=== PATIENT | female | born 1990 | race African-American/Black ===

== ENCOUNTER 2019-02-20 04:34 | Emergency (ER) | payer SELFPAY ==
--- NOTE | 2019-02-20 05:02 | PDOC ---
History of Present Illness - General Stated Complaint: STREP THROAT Time Seen by Provider: 02/20/19 05:02 - History of Present Illness Initial Comments: HPI: 28yo F reporting sore throat x 3 days. Patients states she has been exposed to someone with confirmed strep throat and being treated. When asked why she was present in the ED, she stated she was accompanying the other patient (the one with strep throat). Patient tolerating po intake and secretions. No muffled voice or trismus. Patient additionally endorses congestion and cough. Denies recent travel. No fever, but endorses chills. ROS: Constitutional: no fever, +chills HEENT: +throat pain, no dysphagia Cardiovascular: no chest pain, no palpitations Respiratory: no cough, no shortness of breath Gastrointestinal: no abdominal pain, no nausea Genitourinary: no dysuria, no hematuria Musculoskeletal: no myalgia, no arthralgia Skin: no rash, no itching Neurologic: no headache, no weakness PE: General: Awake, alert, and fully oriented, in no acute distress Head: No signs of trauma Eyes: EOMI, sclera anicteric ENT: Moist mucus membranes, uvula midline, no exudates, no oral masses/lesions Neck: Normal ROM, supple Lungs: Lungs clear, Normal breath sounds Cardio: Regular rhythm, S1 and S2 present Abdomen: Soft, nontender Extremities: Normal range of motion, Distal pulses present SKIN: Warm, Dry, normal turgor Neurologic: Cranial nerves II through XII grossly intact. Normal speech ED Course/MDM: DDX including but not limited to viral syndrome, strep throat, retropharyngeal abscess, peritonsillar abscess As she is outside the window for treatment, will not test for influenza Of note, per chart review, that patient was negative for strep throat. CENTOR criteria 0, no further testing nor antibiotics indicated Tylenol 02/20/19 05:02 Presentation consistent with viral syndrome Low suspicion for space occupying lesion in throat Return precautions Stable for discharge Past History - Past Medical History Allergies/Adverse Reactions: Allergies Allergy/AdvReac Type Severity Reaction Status Date / Time No Known Allergies Allergy Verified 02/20/19 05:59 Discharge - Discharge Information Problems reviewed: Yes Clinical Impression/Diagnosis: Sore throat Condition: Stable Disposition: HOME - Follow up/Referral - Patient Discharge Instructions Patient Printed Discharge Instructions: DI for Viral Pharyngitis Additional Instructions: You came into the emergency department with sore throat. Your exam did not indicate acute pathology. Follow up with your primary care physician within 72 hours. Call and make an appointment to further evaluate your symptoms. Your workup is not complete until you do so. You can take [id number] tylenol or motrin for pain. Follow the instructions on the medication bottle. Make sure you rest, drink lots of fluids: Teas, water, soups, Pedialyte Humidified air, steamy showers, saltwater gargles can help break up mucus Lots of handwashing and good hygiene Immediate medical attention is required if you have: any chest pain, palpitations, shortness of breath, severe headaches, changes in vision, episodes of fainting, focal numbness or weakness, any severe abdominal pain, any black tarry stool, or any new or concerning symptoms. If you think you are having an emergency, call for emergency medical services or present to the emergency department right away. - Post Discharge Activity Work/Back to School Note: Back to Work
--- NOTE | 2019-02-20 05:05 | PDOC ---
Attending Attestation - Resident Resident Name: GilmaRebecca - ED Attending Attestation I have performed the following: I have examined & evaluated the patient, The case was reviewed & discussed with the resident, I agree w/resident's findings & plan, Exceptions are as noted - HPI HPI: 02/26/19 20:28 See resident HPI - Physicial Exam PE: 02/26/19 20:28 Agree with exam as documented by resident - Medical Decision Making 02/26/19 20:28 Likely viral syndrome, viral pharyngitis, consider strep analgesia, re-eval subjective improvement dc home with pcp f/u
[2019-02-20 05:32] VITALS: BP 127/73; PULSE 102; TEMP 98.4; BMI 45.6
[2019-02-20] MEDS ORDERED: ACETAMINOPHEN 325 MG TABLET (FP) PO ONE (05:34)
== END 2019-02-20 06:45 | disposition home or self-care (01) ==
LOC: JER 04:34
DX: J02.9 Acute pharyngitis, unspecified (principal); B97.89 Other viral agents as the cause of diseases classified elsewhere
CPT/HCPCS: 99282-25